=== PATIENT | male | born 1965 | race Caucasian/White ===

== ENCOUNTER 2016-10-01 16:29 | Emergency (ER) | payer OTHER ==
[2016-10-01 16:33] VITALS: RESP 18
[2016-10-01] MEDS ORDERED: KETOROLAC 30 MG/ML 1 ML VIAL IVP STA (16:38)
[2016-10-01] MEDS ORDERED: SODIUM CHLORIDE 0.9% 1,000 ML IV STA (16:38)
--- NOTE | 2016-10-01 16:43 | ED ---
ENT HPI - General Chief complaint: ENT Stated complaint: Ear Pain Time Seen by Provider: 10/01/16 16:31 Source: patient, RN notes reviewed Mode of arrival: ambulatory Limitations: no limitations - History of Present Illness Initial comments: 51 yo male presents to the ER with cc of right ear pain x 2 days. Patient states he has noticed some increased right ear pain and pain behind the ear for the past few days. Patient states that he has had no drainage from the ear. Patient states he had an ear infection to the left ear and was on antibiotics Patient states he is now having pain to the right ear. Patient admits to history of diabetes. Patient states that he has noticed a fever and that's these never actually taken it. Patient states he is concerned due to his worsening pain so he thought that he should be evaluated. Patient denies any recent fever, chills, shortness of breath, chest pain, back pain, abdominal pain , nausea vomiting, numbness or tingling, dysuria or hematuria, constipation or diarrhea, headaches or visual changes, or any other current symptoms. - Related Data Home Medications Medication Instructions Recorded Confirmed Lisinopril [Lisinopril] 40 mg PO DAILY 12/19/15 01/22/16 Multivitamins, Thera [Multivitamin] 1 tab PO DAILY 12/19/15 01/22/16 Naproxen [Naproxen] 500 mg PO BID 12/19/15 01/22/16 Albuterol Inhaler [Ventolin Hfa 2 puff INHALATION RT-Q6H PRN 01/22/16 01/22/16 Inhaler] DULoxetine HCL [Cymbalta] 30 mg PO DAILY 01/22/16 01/22/16 Previous Rx's Medication Instructions Recorded Clindamycin [Cleocin] 450 mg PO TID #63 capsule 01/22/16 HYDROcodone/APAP 5-325MG [[place] 5] 1 each PO Q4HR PRN #10 tab 01/22/16 Ibuprofen [Motrin] 600 mg PO Q6HR PRN #20 tab 01/22/16 Allergies Allergy/AdvReac Type Severity Reaction Status Date / Time codeine Allergy Rash/Hives Verified 10/01/16 16:33 Penicillins Allergy Rash/Hives Verified 10/01/16 16:33 Review of Systems ROS Statement: Those systems with pertinent positive or pertinent negative responses have been documented in the HPI. ROS Other: All systems not noted in ROS Statement are negative. Past Medical History Past Medical History: Osteoarthritis (OA) History of Any Multi-Drug Resistant Organisms: None Reported Past Surgical History: Back Surgery Additional Past Surgical History / Comment(s): neck surgery Past Psychological History: Anxiety, Depression Smoking Status: Current every day smoker Past Alcohol Use History: Occasional Past Drug Use History: Marijuana General Exam Limitations: no limitations General appearance: alert, in no apparent distress Head exam: Present: atraumatic, normocephalic, normal inspection Eye exam: Present: normal appearance, PERRL, EOMI. Absent: scleral icterus, conjunctival injection, periorbital swelling ENT exam: Present: normal oropharynx, mucous membranes moist, normal external ear exam, other (Patient's right ear does appear to have a serum impaction to the right tympanic membrane, normal tympanic membrane to the left) Neck exam: Present: normal inspection. Absent: tenderness, meningismus, lymphadenopathy Respiratory exam: Present: normal lung sounds bilaterally. Absent: respiratory distress, wheezes, rales, rhonchi, stridor Cardiovascular Exam: Present: regular rate, normal rhythm, normal heart sounds. Absent: systolic murmur, diastolic murmur, rubs, gallop, clicks Neurological exam: Present: alert, oriented X3 Psychiatric exam: Present: normal affect Skin exam: Present: warm, dry, intact, normal color. Absent: rash Course Vital Signs 10/01/16 16:31 Temperature 97.8 F Pulse Rate 98 Respiratory 18 Rate Blood Pressure 141/82 O2 Sat by Pulse 98 Oximetry Procedures - Ear Wax Removal Right Ear Cerumenolytic Used: Colace Ear Canal Irrigated by: other (PA) Ear Canal Irrigated With: ear rate clerk device Results: Re-examined: cerumen removed completely TM Visible: TM(s) intact, normal appearance Ear Canal: atraumatic Patient Tolerated Procedure: well Complications: no problems Medical Decision Making - Medical Decision Making 51-year-old male presents emergency right ear pain and serum impaction. Patient does have some pain over the mastoid. CAT scan does not show any acute mastoiditis and shows normal tympanic membranes. There is appear to be chronic changes to the left. This time we discussed continuing follow-up with his ENT. We did discuss return parameters all patient's questions. He stated that he understood. Plan. This will be discharged home. - Lab Data Result diagrams: 10/01/16 16:47 10/01/16 16:47 Lab Results 10/01/16 10/01/16 10/01/16 Range/Units 16:47 16:47 16:47 WBC 9.1 (3.8-10.6) k/uL RBC 5.09 (4.30-5.90) m/uL Hgb 15.9 (13.0-17.5) gm/dL Hct 46.3 (39.0-53.0) % MCV 91.0 (80.0-100.0) fL MCH 31.2 (25.0-35.0) pg MCHC 34.3 (31.0-37.0) g/dL RDW 13.4 (11.5-15.5) % Plt Count 326 (150-450) k/uL Neutrophils % 60 % Lymphocytes % 29 % Monocytes % 5 % Eosinophils % 3 % Basophils % 0 % Neutrophils # 5.5 (1.3-7.7) k/uL Lymphocytes # 2.6 (1.0-4.8) k/uL Monocytes # 0.5 (0-1.0) k/uL Eosinophils # 0.3 (0-0.7) k/uL Basophils # 0.0 (0-0.2) k/uL Sodium 142 (137-145) mmol/L Potassium 4.2 (3.5-5.1) mmol/L Chloride 105 (98-107) mmol/L Carbon Dioxide 26 (22-30) mmol/L Anion Gap 11 mmol/L BUN 10 (9-20) mg/dL Creatinine 0.80 (0.66-1.25) mg/dL Est GFR (MDRD) Af Amer >60 (>60 ml/min/1.73 sqM) Est GFR (MDRD) Non-Af >60 (>60 ml/min/1.73 sqM) Glucose 98 (74-99) mg/dL Plasma Lactic Acid Tyler 1.2 (0.7-2.0) mmol/L Calcium 9.7 (8.4-10.2) mg/dL Total Bilirubin 0.6 (0.2-1.3) mg/dL AST 25 (17-59) U/L ALT 35 (21-72) U/L Alkaline Phosphatase 79 (38-126) U/L Total Protein 7.1 (6.3-8.2) g/dL Albumin 4.3 (3.5-5.0) g/dL Disposition Clinical Impression: Right ear impacted cerumen Disposition: HOME SELF-CARE Condition: Stable Instructions: Cerumen Impaction (ED) Additional Instructions: Please use medication as discussed. Please follow up with family doctor if symptoms have not improved over the next two days. Please return to the emergency room if your symptoms increase or worsen or for any other concerns. Referrals: Alphonso Sharp MD [Primary Care Provider] - 1-2 days Time of Disposition: 18:24
[2016-10-01 16:57] LABS: Basophils % (A) 0 %; CHCM 35.3; Eosinophils # (A) 0.3 k/uL (0-0.7); Eosinophils % (A) 3 %; HCT 46.3 % (39.0-53.0); HGB 15.9 gm/dL (13.0-17.5); Luc # (Auto) 0.24; Luc % (Auto) 3; Lymphocytes # (A) 2.6 k/uL (1.0-4.8); Lymphocytes % (A) 29 %; MCH 31.2 pg (25.0-35.0); MCHC 34.3 g/dL (31.0-37.0); Mean Platelet Volume 6.9; Monocytes # (A) 0.5 k/uL (0-1.0); Monocytes % (A) 5 %; Neutrophils # (A) 5.5 k/uL (1.3-7.7); Neutrophils % (A) 60 %; RBC 5.09 m/uL (4.30-5.90); RDW 13.4 % (11.5-15.5); WBC 9.1 k/uL (3.8-10.6); WBC (Perox) 8.22
[2016-10-01 17:09] LABS: ALT 35 U/L (21-72); AST 25 U/L (17-59); Alkaline Phosphatase 79 U/L (38-126); Anion Gap 11 mmol/L; Blood Urea Nitrogen 10 mg/dL (9-20); Calcium 9.7 mg/dL (8.4-10.2); Carbon Dioxide 26 mmol/L (22-30); Chloride 105 mmol/L (98-107); Glucose 98 mg/dL (74-99); Non-African American GFR(MDRD) >60 (>60 ml/min/1.73 sqM); Potassium 4.2 mmol/L (3.5-5.1); Sodium 142 mmol/L (137-145); Total Bilirubin 0.6 mg/dL (0.2-1.3); Total Protein 7.1 g/dL (6.3-8.2)
--- NOTE | 2016-10-01 17:42 | CT ---
EXAMINATION TYPE: CT mastoid wo con DATE OF EXAM: 10/01/2016 COMPARISON: NONE HISTORY: Patient complains of bilateral ear pain. Patient has positive history for known ear infecti on on the right. CT DLP: 268 mGycm. Automated Exposure Control for Dose Reduction was Utilized. TECHNIQUE: CT scan of internal auditory canal is performed without contrast, thin cut axial images ar e obtained, coronal reformatted images are also reviewed. FINDINGS: There is some debris in the external auditory canals and more on the right side compared to the left. There is fairly normal aeration of the right mastoid sinus. There are a few opacified mastoid air ce lls on the right side at the petrous pyramid. There is mucosal thickening in significant opacification of the left mastoid sinus. There is mucosal thickening in the epitympanic recess on the left side. There is fairly normal aeration of the epitymp anic recess on the right side. The cochlea are symmetric. The semicircular canals are symmetric. I se e no focal bone destruction. IMPRESSION: There is debris in the right external auditory canal that extends up to the tympanic membrane and the lumen is almost completely occluded. There is fairly normal appearance of the middle ear cavity on t he right side. There is evidence of chronic left-sided mastoiditis with opacification of mastoid air cells and osteo sclerosis. There is fluid In the middle ear cavity in the epitympanic recess consistent with otitis.
[2016-10-01] MEDS ORDERED: DOCUSATE ORAL SOLN 100 MG/10 ML CUP PO STA (17:46)
[2016-10-01 18:34] VITALS: BP 126/80; PULSE 73; TEMP 98.9
== END 2016-10-01 18:34 | disposition home or self-care (01) ==
LOC: EC 16:29
DX: H61.21 Impacted cerumen, right ear (principal); M19.90 Unspecified osteoarthritis, unspecified site; F32.9 Major depressive disorder, single episode, unspecified; F17.200 Nicotine dependence, unspecified, uncomplicated; Z88.0 Allergy status to penicillin; Z88.5 Allergy status to narcotic agent; Z79.1 Long term (current) use of non-steroidal anti-inflammatories (NSAID); Z79.899 Other long term (current) drug therapy
CPT/HCPCS: 99283; 96374; 96361; 69209; 36415; 80053; 83605; 85025; 87040; 70486; J1885

== ENCOUNTER 2016-11-12 12:46 | Emergency (ER) | payer OTHER ==
[2016-11-12 12:50] VITALS: BP 129/74; PULSE 75; RESP 18; TEMP 96.7
--- NOTE | 2016-11-12 13:01 | ED ---
Back Pain HPI - General Chief Complaint: Back Pain/Injury Stated Complaint: Back Pain Time Seen by Provider: 11/12/16 12:50 Source: patient Limitations: no limitations - History of Present Illness Initial Comments: 51-year-old male patient presents to emergency room in stable complaints of right lower back pain with radiation down the right leg. Patient states that he has had lower back pain for the last couple of weeks, but over the last 2 days symptoms have worsened. Patient states that he was very difficult for him to get out of bed this morning without severe pain. Patient states the pain is sharp and shooting down the leg to about the mid thigh level. Patient denies any loss of bowel or bladder control, lower extremity numbness or tingling, saddle parasthesia, chest pain, abdominal pain, nausea, vomiting, dysuria, hematuria, urinary urgency, urinary frequency. Denies any fever or chills. Patient states that he has had symptoms similar to this in the past. He states he takes Tylenol No. 4 but this has not been helping with the pain. - Related Data Home Medications Medication Instructions Recorded Confirmed Lisinopril [Lisinopril] 40 mg PO DAILY 12/19/15 01/22/16 Multivitamins, Thera [Multivitamin] 1 tab PO DAILY 12/19/15 01/22/16 Naproxen [Naproxen] 500 mg PO BID 12/19/15 01/22/16 Albuterol Inhaler [Ventolin Hfa 2 puff INHALATION RT-Q6H PRN 01/22/16 01/22/16 Inhaler] DULoxetine HCL [Cymbalta] 30 mg PO DAILY 01/22/16 01/22/16 Previous Rx's Medication Instructions Recorded Clindamycin [Cleocin] 450 mg PO TID #63 capsule 01/22/16 HYDROcodone/APAP 5-325MG [[place] 5] 1 each PO Q4HR PRN #10 tab 01/22/16 Ibuprofen [Motrin] 600 mg PO Q6HR PRN #20 tab 01/22/16 Cyclobenzaprine [Flexeril] 10 mg PO TID #15 tab 11/12/16 Hydrocodone/Acetaminophen [[place] 1 tab PO Q6HR PRN #15 tab 11/12/16 5-325] methylPREDNISolone [Medrol Dose 4 mg PO DIRECTED #1 pack 11/12/16 Pack] Allergies Allergy/AdvReac Type Severity Reaction Status Date / Time codeine Allergy Rash/Hives Verified 11/12/16 12:50 Penicillins Allergy Rash/Hives Verified 11/12/16 12:50 Review of Systems ROS Statement: Those systems with pertinent positive or pertinent negative responses have been documented in the HPI. ROS Other: All systems not noted in ROS Statement are negative. Past Medical History Past Medical History: Osteoarthritis (OA) Additional Past Medical History / Comment(s): back pain History of Any Multi-Drug Resistant Organisms: None Reported Past Surgical History: Back Surgery Additional Past Surgical History / Comment(s): neck surgery Past Psychological History: Anxiety, Depression Smoking Status: Current every day smoker Past Alcohol Use History: Occasional Past Drug Use History: Marijuana General Exam Limitations: no limitations General appearance: alert, in no apparent distress Head exam: Present: atraumatic, normocephalic, normal inspection Eye exam: Present: normal appearance, PERRL, EOMI. Absent: scleral icterus, conjunctival injection, periorbital swelling ENT exam: Present: normal exam, mucous membranes moist Neck exam: Present: normal inspection. Absent: tenderness, meningismus, lymphadenopathy Respiratory exam: Present: normal lung sounds bilaterally. Absent: respiratory distress, wheezes, rales, rhonchi, stridor Cardiovascular Exam: Present: regular rate, normal rhythm, normal heart sounds. Absent: systolic murmur, diastolic murmur, rubs, gallop, clicks GI/Abdominal exam: Present: soft, normal bowel sounds. Absent: distended, tenderness, guarding, rebound, rigid Extremities exam: Present: normal inspection, full ROM, normal capillary refill. Absent: tenderness, pedal edema, joint swelling, calf tenderness Back exam: Present: normal inspection, full ROM. Absent: tenderness Neurological exam: Present: alert, oriented X3, CN II-XII intact Psychiatric exam: Present: normal affect, normal mood Skin exam: Present: warm, dry, intact, normal color. Absent: rash Course Vital Signs 11/12/16 12:47 Temperature 96.7 F L Pulse Rate 75 Respiratory 18 Rate Blood Pressure 129/74 O2 Sat by Pulse 99 Oximetry Medical Decision Making - Medical Decision Making 51-year-old male patient presented to emergency department for evaluation of back pain. Patient neurological exam is within normal limits. Patient did have positive straight leg test. Patient does have a history of sciatic back pain. Symptoms are consistent with sciatic back pain rule discharge patient home with a prescription for Medrol Dosepak, Flexeril, and [place] for pain control. Did instruct patient to follow-up with a back specialist per his request. Also injected patient follow up with primary care physician for recheck in one to 2 days. Instructed to return for any new, worsening, or concerning symptoms. Patient verbalized understanding and agreed to this plan. Disposition Clinical Impression: Sciatica, Low back pain Disposition: HOME SELF-CARE Condition: Good Instructions: Sciatica (ED), Acute Low Back Pain (ED), Lower Back Exercises (ED ) Additional Instructions: Complete steroid Dosepak and full. Take pain medications as directed. Follow up with primary care physician in one to 2 days. Return for any new, worsening , or concerning symptoms. Prescriptions: Cyclobenzaprine [Flexeril] 10 mg PO TID #15 tab Hydrocodone/Acetaminophen [[place] 5-325] 1 tab PO Q6HR PRN #15 tab PRN Reason: Pain methylPREDNISolone [Medrol Dose Pack] 4 mg PO DIRECTED #1 pack Referrals: Alphonso Sharp MD [Primary Care Provider] - 1-2 days Omega De La Vega DO [Doctor of Osteopathic Medicine] - 1-2 days Time of Disposition: 13:01
== END 2016-11-12 13:08 | disposition home or self-care (01) ==
LOC: EC 12:46
DX: M54.41 Lumbago with sciatica, right side (principal); M19.90 Unspecified osteoarthritis, unspecified site; F41.9 Anxiety disorder, unspecified; F32.9 Major depressive disorder, single episode, unspecified; F17.200 Nicotine dependence, unspecified, uncomplicated; Z88.0 Allergy status to penicillin; Z88.5 Allergy status to narcotic agent; Z79.1 Long term (current) use of non-steroidal anti-inflammatories (NSAID); Z79.899 Other long term (current) drug therapy
CPT/HCPCS: 99283

== ENCOUNTER 2016-11-26 17:10 | Emergency (ER) | payer OTHER ==
[2016-11-26 17:18] VITALS: BP 130/85; PULSE 101; RESP 18; TEMP 97
--- NOTE | 2016-11-26 17:39 | ED ---
Back Pain HPI - General Chief Complaint: Back Pain/Injury Stated Complaint: lower severe back pain Time Seen by Provider: 11/26/16 17:25 Source: patient Limitations: no limitations - History of Present Illness Initial Comments: 51-year-old male patient percents to emergency department today for evaluation of lower back pain that radiates down the right leg. Patient states that this pain is chronic and start did worsening for him approximately 4 weeks ago. He was seen and evaluated here by myself 2 weeks ago. At that time he was diagnosed with sciatic back pain, given a Medrol Dosepak, Knapp, and Flexeril for pain control. Patient states that he did complete the Medrol Dosepak in full, and has run out of the Knapp and Flexeril. Patient states that his pain did not change or improve at all. He states that he did attempt to call his primary care physician for an appointment but cannot get in until the . He states that he also tried to call and get an appointment with orthopedic physician however he is unable to get an appointment there until next month some time. Patient states that he is prescribed Tylenol No. 4 by his primary care physician however he had to double up because of the pain and has run out. He denies any numbness or tingling to his lower extremities. He denies any loss of bowel or bladder control. He denies any saddle anesthesia. He denies any recent or new injury. He denies any chest pain, shortness of breath, abdominal pain, nausea, vomiting, or difficulty with urination or bowel movements. Denies any rash, fever, or chills. - Related Data Home Medications Medication Instructions Recorded Confirmed Lisinopril [Lisinopril] 40 mg PO DAILY 12/19/15 11/26/16 Multivitamins, Thera [Multivitamin] 1 tab PO DAILY 12/19/15 11/26/16 Naproxen [Naproxen] 500 mg PO BID 12/19/15 11/26/16 Albuterol Inhaler [Ventolin Hfa 2 puff INHALATION RT-Q6H PRN 01/22/16 11/26/16 Inhaler] DULoxetine HCL [Cymbalta] 30 mg PO DAILY 01/22/16 11/26/16 Previous Rx's Medication Instructions Recorded Clindamycin [Cleocin] 450 mg PO TID #63 capsule 01/22/16 HYDROcodone/APAP 5-325MG [[place] 5] 1 each PO Q4HR PRN #10 tab 01/22/16 Ibuprofen [Motrin] 600 mg PO Q6HR PRN #20 tab 01/22/16 Cyclobenzaprine [Flexeril] 10 mg PO TID #15 tab 11/12/16 Hydrocodone/Acetaminophen [[place] 1 tab PO Q6HR PRN #15 tab 11/12/16 5-325] methylPREDNISolone [Medrol Dose 4 mg PO DIRECTED #1 pack 11/12/16 Pack] Orphenadrine [Norflex] 100 mg PO Q12H #20 tablet.er 11/26/16 Allergies Allergy/AdvReac Type Severity Reaction Status Date / Time codeine Allergy Rash/Hives Verified 11/26/16 17:18 Penicillins Allergy Rash/Hives Verified 11/12/16 12:50 Review of Systems ROS Statement: Those systems with pertinent positive or pertinent negative responses have been documented in the HPI. ROS Other: All systems not noted in ROS Statement are negative. Past Medical History Past Medical History: Osteoarthritis (OA) Additional Past Medical History / Comment(s): back pain History of Any Multi-Drug Resistant Organisms: None Reported Past Surgical History: Back Surgery Additional Past Surgical History / Comment(s): neck surgery Past Psychological History: Anxiety, Depression Smoking Status: Current every day smoker Past Alcohol Use History: Occasional Past Drug Use History: Marijuana General Exam Limitations: no limitations Course Vital Signs 11/26/16 17:15 Temperature 97.0 F L Pulse Rate 101 H Respiratory 18 Rate Blood Pressure 130/85 O2 Sat by Pulse 98 Oximetry Medical Decision Making - Medical Decision Making 51-year-old male patient presents to emergency department today for evaluation of chronic low back pain. Patient was seen and treated here 2 weeks ago and did complete a Medrol Dosepak. Patient states that he has run out of the Knapp and Flexeril that he was prescribed here and is also run out of the Tylenol No. 4's that he is prescribed by his primary care physician. Physical exam was unremarkable other than a positive straight leg test to the right leg. Patient is neurologically intact. Patient will be given a prescription for Norflex rather than the Flexeril since he states this did not help him. Patient is instructed to obtain any further narcotic pain medications from his primary care physician only. Did recommend calling the office to attempt to get a sooner appointment. Patient instructed to follow up with his primary care physician a 1-2 days. Patient instructed to return immediately for any new, worsening, or concerning symptoms. Patient verbalizes understanding and agrees with this plan. Disposition Clinical Impression: Chronic back pain Disposition: HOME SELF-CARE Condition: Good Instructions: Sciatica (ED), Chronic Back Pain (ED) Additional Instructions: Take-home pain medications as directed. Take Norflex as directed. Keep appointments with both primary care physician and orthopedics. Call primary care physician's office try to get an appointment sooner. Return for any new, worsening, or concerning symptoms. Prescriptions: Orphenadrine [Norflex] 100 mg PO Q12H #20 tablet.er Referrals: Alphonso Sharp MD [Primary Care Provider] - 1-2 days Time of Disposition: 17:38
== END 2016-11-26 17:49 | disposition home or self-care (01) ==
LOC: EC 17:10
DX: M54.5 Low back pain (principal); G89.29 Other chronic pain; M19.90 Unspecified osteoarthritis, unspecified site; F41.9 Anxiety disorder, unspecified; F32.9 Major depressive disorder, single episode, unspecified; F17.200 Nicotine dependence, unspecified, uncomplicated; Z98.890 Other specified postprocedural states; Z79.1 Long term (current) use of non-steroidal anti-inflammatories (NSAID); Z79.899 Other long term (current) drug therapy; Z88.0 Allergy status to penicillin; Z88.5 Allergy status to narcotic agent
CPT/HCPCS: 99283